=== PATIENT | female | born 1980 | race Caucasian/White ===

== ENCOUNTER 2024-06-29 18:29 | Emergency (ER) | payer OTHER, SELFPAY ==
[2024-06-29 18:35] VITALS: BP 160/100; PULSE 79; TEMP 37; O2SAT 97; BMI 27.4
--- NOTE | 2024-06-29 18:49 | XR_ITS ---
The [address] [address] Patient Name: LAKEISHA BHAGAT MRN: [id number] date: 1980 Sex: F Assigned Patient Location: ER Current Patient Location: ED.MAIN Accession/Order Number: [id number] Exam Date: 06/29/2024 17:00 Report Date: 06/29/2024 20:11 At the request of: CLARIBEL ANAND Procedure: XR ribs RT min 3V w CXR1V EXAMINATION: XR ribs RT min 3V w CXR1V HISTORY: cough and pain COMPARISON: No relevant comparison available. FINDINGS: LUNGS: Subtle patchy opacities within left mid and lower lung. Right lung is clear. PLEURA: No pneumothorax, effusion, or pleural thickening. MEDIASTINUM: No visible mass or adenopathy. CARDIAC: No cardiomegaly or cardiac silhouette abnormality. RIBS: Normal. No significant arthropathy or acute abnormality. OTHER: Negative. XR/XR ribs RT min 3V w CXR1V IMPRESSION: 1. Mild left pulmonary infiltrates/pneumonia. 2. Right lung is clear. 3. No appreciable rib abnormality. Electronically authenticated by: NORAH HE Date: 06/29/2024 20:11
[2024-06-29 19:07] LABS: Influenza Virus A Antigen Negative; Influenza Virus B Antigen Negative; Internal Control Within Normal Limits; SARS-CoV-2 Ag NEGATIVE (NEGATIVE)
--- NOTE | 2024-06-29 19:26 | ED.URI1 ---
HPI - URI/Sore Throat General Chief Complaint: Upper Respiratory Infection Stated Complaint: COUGH, WEAK, SOB Time Seen by Provider: 06/29/24 19:20 Source: patient History of Present Illness HPI Narrative: 44-year-old female presents for cough and pain in her right lower lateral rib region. She is worried about a cracked rib. She states it came on suddenly while she was coughing. There was no fall. She has been sick for about 3 weeks and has been on steroids and is currently on an antibiotic, amoxicillin. No hemoptysis. She recently finished a course of steroids as well. Related Data Previous Rx's ?Medication ?Instructions ?Recorded azithromycin 250 mg tablet See Rx Instructions PO .COMPLEX #6 06/29/24 (Zithromax Z-Pio) tabs Allergies Allergy/AdvReac Type Severity Reaction Status Date / Time No Known Drug Allergies Allergy Verified 06/29/24 18:40 Review of Systems ROS Narrative A ten point review of systems is negative except as noted above. PFSH PFSH Social History Little interest or pleasure in doing things: not at all Feeling down, depressed, or hopeless: not at all Exam Narrative Exam Narrative: Nurses note and vital signs reviewed and patient is not hypoxic. General: The patient appears in no apparent distress. Skin: Warm, dry, no pallor noted. There is no rash noted. Head: Normocephalic, atraumatic Eye: Normal conjunctiva, no drainage Ears, Nose, Mouth, and Throat: oral mucosa is moist. Nares patent. Cardiovascular: Regular Rate and Rhythm Respiratory: Patient is in no distress, no accessory muscle use, lungs are clear to auscultation, no wheezing, rales or rhonchi Back: non-tender GI: Soft and nontender Musculoskeletal: The patient has no evidence of calf tenderness, no pitting edema, symmetrical pulses noted bilaterally Neurological: A&O, normal speech Psychiatric: Cooperative Constitutional Vital Signs, click to edit/add: Last Vital Signs Temp 98.6 F 06/29/24 18:35 Pulse 79 06/29/24 18:35 Resp 18 06/29/24 18:35 BP 160/100 H 06/29/24 18:35 Pulse Ox 97 06/29/24 18:35 O2 Del Method Room Air 06/29/24 18:35 Course Vital Signs Vital signs: Vital Signs Temperature 98.6 F 06/29/24 18:35 Pulse Rate 79 06/29/24 18:35 Respiratory Rate 18 06/29/24 18:35 Blood Pressure 160/100 H 06/29/24 18:35 Pulse Oximetry 97 06/29/24 18:35 Oxygen Delivery Method Room Air 06/29/24 18:35 Temperature 98.6 F 06/29/24 18:35 Pulse Rate 79 06/29/24 18:35 Respiratory Rate 18 06/29/24 18:35 Blood Pressure 160/100 H 06/29/24 18:35 Pulse Oximetry 97 06/29/24 18:35 Oxygen Delivery Method Room Air 06/29/24 18:35 MDM - URI/Sore Throat MDM Narrative Medical decision making narrative: Chest x-ray per radiologist suggest left lower lobe pneumonia. No evidence of rib fracture and the COVID and influenza tests are negative. She will be started on Zithromax. She is feeling improved after being given IM Toradol. Treatment diagnosis and follow-up were discussed with the patient. Differential Diagnosis Differential diagnosis: Likely upper respiratory infection, viral infection, influenza and other (COVID, pneumonia) Lab Data Attestation: I reviewed the patient's lab results. Labs: Lab Results 06/29/24 Range/Units 18:42 Influenza Type A Ag Negative Influenza Type B Ag Negative SARS-CoV-2 Ag (CV2AG) Negative (NEGATIVE) Imaging Data Chest x-ray: Radiologist's impression: ITS Impressions Ribs X-Ray 06/29/24 18:49 IMPRESSION: 1. Mild left pulmonary infiltrates/pneumonia. 2. Right lung is clear. 3. No appreciable rib abnormality. Electronically authenticated by: NORAH HE Date: 06/29/2024 20:11 Discharge Plan Discharge Chief Complaint: Upper Respiratory Infection Clinical Impression: Pneumonia Patient Disposition: Home, Self-Care Time of Disposition Decision: 20:27 Condition: Good Mode of Transportation: Private Vehicle Prescriptions / Home Meds: New azithromycin [Zithromax Z-Pio] 250 mg tablet See Rx Instructions .ROUTE .COMPLEX Qty: 6 0RF Rx Instructions: For 250 mg dose pack: take 500 mg today (day 1), then 250 mg for 4 days (days 2-5) Print Language: Divehi Instructions: Community Acquired Pneumonia (ED) Additional Instructions: Discontinue amoxicillin Referrals: Neil Calderon MD [Primary Care Provider] - 1 week
[2024-06-29] MEDS: KETOROLAC TROMETHAMINE 60 MG/2 ML VIAL IM (19:47)
[2024-06-29] MEDS: AZITHROMYCIN 250 MG TABLET 500 MG PO (20:48)
== END 2024-06-29 20:40 | disposition home or self-care (01) ==
PROVIDERS: Emergency Medicine; Emergency Provider Emergency Medicine; PCP Family Medicine
DX: J18.9 Pneumonia, unspecified organism (principal)
CPT/HCPCS: 71101; 87804; 87811; 96372; 99285; J1885